=== PATIENT | female | born 1950 | race Caucasian/White ===

== ENCOUNTER 2022-01-19 08:57 | Inpatient (IN) | payer OTHER ==
[~2022-01-19] VITALS: Ht 162.6 cm; Wt 108.9 kg
[2022-01-19] MEDS ORDERED: METF-440 PO (09:09)
[2022-01-19] MEDS ORDERED: GLIP10TA11 PO (09:09)
[2022-01-19] MEDS ORDERED: LISI10TA29 PO (09:09)
[2022-01-19] MEDS ORDERED: SPIR25TA6 PO (09:09)
[2022-01-19] MEDS ORDERED: IV NORMAL SALINE 500 ML BAG IV ONE (09:15)
--- NOTE | 2022-01-19 09:30 | NUR ---
PT IS IN ROOM #2B. DR BARRY EVALUATED THE PT.
[2022-01-19 09:32] LABS: HEMATOCRIT 38.5 % (31.2-41.9); MEAN CORPUSCULAR HEMOGLOBIN 29.9 uug (24.7-32.8); MEAN CORPUSCULAR VOLUME 89.2 fL (75.5-95.3); PLATELET COUNT (AUTO) 179 K/uL (179-408)
[2022-01-19 09:50] LABS: CARBON DIOXIDE 24 mmol/L (21-32); CHLORIDE 103 mmol/L (98-107); GLUCOSE 187 mg/dL (74-106); UREA NITROGEN, BLOOD 19 mg/dL (7-18)
[2022-01-19] MEDS ORDERED: ATROPINE SULFATE 1 MG/10 ML DISP.SYRIN ONE (09:59)
[2022-01-19] MEDS ORDERED: ATROPINE SULFATE 1 MG/10 ML DISP.SYRIN IV ONE (10:00)
--- NOTE | 2022-01-19 13:59 | NUR ---
REPORT WAS GIVEN TO WELDING MACHINE OPERATOR RESISTANCE. PT WAS TRANSFERED TO ROOM #320.
--- NOTE | 2022-01-19 14:45 | NUR ---
Patient situated in room 320 [id number]. heart rate sustained in the 40's. Addendum: 01/19/22 at 1523 by LELO PICHARDO RN vitals as follow: SBP 149/60, HR 43, 97% RA.
[2022-01-19] MEDS ORDERED: EZET10TA15 PO (14:54)
[2022-01-19] MEDS ORDERED: CARV12.5 PO (14:54)
--- NOTE | 2022-01-19 15:03 | NUR ---
Dr. Fraser group billing coordinator in the unit to see pt. after seeing heart rate sustained in the 40's. orders to upgrade pt. to ICU status received and orders to have pacer ready if pt. becomes unresponsive. first give 1mg of versed and start pacing immediately. with rate in the 60. and maintain pt. NPO. Addendum: 01/19/22 at 1714 by LELO PICHARDO RN At this time Nursing mine administrator supervisor and attending notified. Awaiting for and ICU bed.
[2022-01-19 15:08] VITALS: BP 149/45
[2022-01-19] MEDS ORDERED: ATROPINE SULFATE 1 MG/10 ML DISP.SYRIN IV PRN (15:15)
[2022-01-19] MEDS ORDERED: MIDAZOLAM HCL 2 MG/2 ML VIAL IV PRN (15:15)
[2022-01-19] MEDS ORDERED: LISINOPRIL 10 MG TABLET PO SCH ×2 (15:45→19:30)
[2022-01-19] MEDS ORDERED: DOCU-141 PO (15:54)
[2022-01-19] MEDS ORDERED: ACET-2154 PO (15:54)
[2022-01-19] MEDS ORDERED: HYDR-894 PO (15:54)
[2022-01-19] MEDS ORDERED: ONDA4TAB5 PO (15:54)
[2022-01-19] MEDS ORDERED: glipiZIDE 10 MG TABLET PO SCH (17:00)
[2022-01-19] MEDS ORDERED: METFORMIN HCL 500 MG TABLET PO SCH (17:00)
--- NOTE | 2022-01-19 17:18 | NUR ---
146/44 HR 38, RR16, saturation 98% on room air. Patient awake alert oriented. daughter at bedside.
[2022-01-19 17:19] VITALS: BP 146/44
--- NOTE | 2022-01-19 17:49 | NUR ---
A call from Dr. Fraser and orders to echocardiogram stat before pt. last picker.
--- NOTE | 2022-01-19 19:25 | NUR ---
[facility] transportation in the unit and at this time pt. taken to [facility]. HR of 38, sbp of 144/62, 97% on RA. RR 14.
[2022-01-20] MEDS ORDERED: SPIRONOLACTONE 25 MG TABLET PO SCH (09:00)
== END 2022-01-19 19:25 | disposition short-term general hospital (02) | DRG 309 ==
LOC: EDBD 08:57 → ER 08:57 → TELE3 13:47
PROVIDERS: ADMIT Internal Medicine; ATTEND Internal Medicine
DX: I44.1 Atrioventricular block, second degree (principal); Z68.41 Body mass index [BMI] 40.0-44.9, adult; E11.9 Type 2 diabetes mellitus without complications; E66.9 Obesity, unspecified; I11.0 Hypertensive heart disease with heart failure; I25.10 Atherosclerotic heart disease of native coronary artery without angina pectoris; Z20.822 Contact with and (suspected) exposure to COVID-19; Z79.84 Long term (current) use of oral hypoglycemic drugs; I50.9 Heart failure, unspecified; Z98.61 Coronary angioplasty status; I44.7 Left bundle-branch block, unspecified
CPT/HCPCS: 36415; 70450; 71045; 84484; 85025; 85730; 93005; 93307; A4663; G0378; J0461; J2250; J7040